=== PATIENT | female | born 1995 | race Caucasian/White ===

== ENCOUNTER 2018-01-23 16:15 | Outpatient (CLI) | payer OTHER ==
[2018-01-24] MEDS ORDERED: PRENATAL 19 TA1 EACH PO (07:21)
== END 2018-01-24 11:14 | disposition home or self-care (01) ==
LOC: OBS/DEL 16:15
DX: O60.03 Preterm labor without delivery, third trimester (principal); O26.893 Other specified pregnancy related conditions, third trimester; R42 Dizziness and giddiness; Z34.03 Encounter for supervision of normal first pregnancy, third trimester

== ENCOUNTER 2018-03-21 15:15 | Inpatient (IN) | payer OTHER ==
[~2018-03-21] VITALS: Ht 167.6 cm; Wt 66.2 kg
[~2018-03-21 15:15] MED LIST: PRENATAL 19 TA1 EACH PO
[2018-03-23] MEDS ORDERED: IRON325 MG PO (00:01)
== END 2018-03-28 17:46 | DRG 774 ==
LOC: OB/GYN 03-26 14:40 → LDR 03-26 14:40 → OB/GYN 03-26 22:51 → LDR 04-07 15:15 → OB/GYN 04-07 15:15
PROC: 10E0XZZ Delivery of Products of Conception, External Approach (ICD-10-PCS; principal; 2018-03-26)
PROC: 0W8NXZZ Division of Female Perineum, External Approach (ICD-10-PCS; 2018-03-26)
PROC: 4A033R1 Measurement of Arterial Saturation, Peripheral, Percutaneous Approach (ICD-10-PCS; 2018-03-26)
PROC: 4A1HXCZ Monitoring of Products of Conception, Cardiac Rate, External Approach (ICD-10-PCS; 2018-03-26)
DX: O98.32 Other infections with a predominantly sexual mode of transmission complicating childbirth (principal); Z3A.38 38 weeks gestation of pregnancy; Z37.0 Single live birth

== ENCOUNTER 2018-03-22 23:31 | Outpatient (CLI) | payer OTHER ==
[2018-03-23] MEDS ORDERED: IRON325 MG PO (00:01)
== END 2018-03-23 12:39 | disposition home or self-care (01) ==
LOC: OBS/DEL 23:31
DX: O47.1 False labor at or after 37 completed weeks of gestation (principal); O46.8X3 Other antepartum hemorrhage, third trimester; Z34.01 Encounter for supervision of normal first pregnancy, first trimester

== ENCOUNTER → 2020-03-18 | Outpatient (CLI) | payer OTHER ==
[~2020-03-18] MED LIST changes: +IRON325 MG PO
== END | disposition home or self-care (01) ==
LOC: PRENATAL 14:00
PROVIDERS: ATTEND Obstetrics & Gynecology
DX: O35.0XX1 Maternal care for (suspected) central nervous system malformation in fetus, fetus 1 (principal); O35.3XX1 Maternal care for (suspected) damage to fetus from viral disease in mother, fetus 1

== ENCOUNTER 2020-06-21 11:35 | Outpatient (CLI) | payer OTHER | END 2020-06-21 16:36 | disposition home or self-care (01) | LOC: OBS/DEL 11:35 | PROVIDERS: ATTEND Obstetrics & Gynecology | DX: O26.843 Uterine size-date discrepancy, third trimester (principal); O36.8130 Decreased fetal movements, third trimester, not applicable or unspecified; O26.853 Spotting complicating pregnancy, third trimester; O47.1 False labor at or after 37 completed weeks of gestation ==

== ENCOUNTER 2020-07-25 20:51 | Inpatient (IN) | payer OTHER ==
[~2020-07-25] VITALS: Ht 165.1 cm; Wt 66.2 kg
[2020-07-25] MEDS ORDERED: VALTREX1000 MG PO (22:33)
[2020-07-25] MEDS ORDERED: PRENATAL CAPLE1 EAC1 PO (22:33)
== END 2020-07-28 16:13 | disposition home or self-care (01) | DRG 807 ==
LOC: LDR 20:51 → OB/GYN 20:51
PROVIDERS: ADMIT Obstetrics & Gynecology; ATTEND Obstetrics & Gynecology
PROC: 10E0XZZ Delivery of Products of Conception, External Approach (ICD-10-PCS; principal; 2020-07-26)
PROC: 0KQM0ZZ Repair Perineum Muscle, Open Approach (ICD-10-PCS; 2020-07-26)
PROC: 4A1HXFZ Monitoring of Products of Conception, Cardiac Rhythm, External Approach (ICD-10-PCS; 2020-07-26)
DX: O99.824 Streptococcus B carrier state complicating childbirth (principal); Z37.0 Single live birth; O70.1 Second degree perineal laceration during delivery; Z3A.39 39 weeks gestation of pregnancy; Z20.828 Contact with and (suspected) exposure to other viral communicable diseases